=== PATIENT | female | born 1985 | race Caucasian/White ===

== ENCOUNTER 2019-10-08 10:55 | Day surgery (SDC) | payer BC, SELFPAY ==
--- NOTE | 2019-10-07 14:21 | PCM.HP.BLA ---
History and Physical Date of Admission: 10/08/19 Pre-Op History and Physical ? HPI: The patient is a 34 year old female presenting for pre-operative visit. She is scheduled for?Suction D&C, for?missed ab 10 weeks from LMP, 8 week size on?10/08/19. ??Procedure discussed along with risks, benefits and complications. ?Other alternatives discussed for management. Consent form signed??Yes.? PAST MEDICAL HISTORY PAST MEDICAL HISTORY Diagnosis Date ? Asthma ? ? exercise-induced, no inhaler since high school ? Complication of anesthesia ? ? sensitive to Epidural ? Depression 2001 ? IBS (irritable bowel syndrome) 2008 ? ? PAST SURGICAL HISTORY PAST SURGICAL HISTORY Procedure Laterality Date ? COLONOSCOPY ? 2008 ? D&C, DIAG AND/OR THERAPEUTIC ? 06/2014 ? Dilation & curettage ? PAST SURGICAL HISTORY OF ? ? ? wisdom teeth ? UNSPECIFIED ORAL SURGERY PROCEDURE, BY REPORT ? CURRENT MEDICATIONS Current Outpatient Medications Medication Sig Dispense Refill ? PNV no.95/ferrous fum/folic ac ( ORAL) Take by mouth. ? ? ? docosahexanoic acid (DHA ALGAL-900 ORAL) Take by mouth. ? ? ? docusate sodium (STOOL SOFTENER ORAL) Take by mouth. ? ? ? multivitamin with folic acid (THERA) 400 mcg Take 1 tablet by mouth. ? ? ? buPROPion XL (WELLBUTRIN XL) 150 mg ORAL 24 hr tablet Take 150 mg by mouth once daily. ? ? ? No current facility-administered medications for this visit.? ? ALLERGIES:?Penicillins; Gluten ? PERSONAL HISTORY:? SOCIAL HISTORY Social History ? Tobacco Use ? Smoking status: Never Smoker ? Smokeless tobacco: Never Used Substance Use Topics ? Alcohol use: Not Currently ? ? Comment: Occasionally, not while ? Drug use: No ? FAMILY HISTORY:? FAMILY HISTORY FAMILY HISTORY Problem Relation Age of Onset ? Thyroid Mother ?hypo ? Heart Mother ?failed stress test ? Allergies Father ?multiple ? Heart Father ? ? Aneurysm Father ?heart ? Skin Cancer Father ?face ? Thyroid Maternal Grandmother ?hypo ? Cancer Maternal Grandmother ? ? other (depression) Maternal Grandmother ?and anxiety ? Heart Maternal Grandfather ? ? other (depression) Paternal Grandmother ?and anxiety ? Heart Paternal Grandfather ?triple bypass ? REVIEW OF SYMPTOMS: GENERAL: denies fevers or chills ENDOCRINOLOGY: has not been on steroids Cardiology : denies palpitations or chest pain Respiratory: denies SOB or cough Hematology: denies history of prolonged bleeding or easy bruising or VTE Allergy: Denies history of personal or family history of allergy to anesthesia ? ? PHYSICAL EXAMINATION: ? VITALS:?Last menstrual period 07/23/2019. ? GENERAL:??The patient is well nourished, well hydrated in no acute distress. ?, The patient is oriented to time, place, and person. NECK:?Supple. No lynphadenopathy, normal thyroid, no thyromegaly. LUNGS:?Clear to auscultation bilaterally. no wheezes, rhonchi or rales HEART:?Regular rate and rhythm, Normal heart sounds and No murmurs or gallops GENITALIA:?Normal external genitalia, Urethral meatus normal, Bladder nontender, normal vagina and normal vaginal tone, normal cervix, normal uterus, size and consistency, normal adnexa without masses or tenderness and perineum WNL ? ? Brief TVUS done, single IUP without cardiac activity, c/w 8 week size embryo.? ? IMPRESSION:?10w6d?missed ab ? PLAN:???The risks/benefits/alternatives and personal involved for the planned?suction D&C?were reviewed with the patient. Her questions were answered to her satisfaction and she desires to proceed. ?Consent was signed. ?I reviewed with her postop instructions and expectations. ?Offered genetic screening, declines.? ? ? I have reviewed and updated past medical and surgical history, medications and allergies. this history and physical was completed in my office on 10/07/2019.
[2019-10-08] VITALS (7 sets, daily range): BP systolic 93–113; BP diastolic 50–70; PULSE 84–112; RESP 16; TEMP 36.6–37.6; O2SAT 98; BMI 30.7
[2019-10-08 11:28] LABS: Hematocrit 37.9 % (37-47); Hemoglobin 12.5 g/dL (12.0-15.0); Mean Corpuscular Hgb 28.6 pg (27.0-32.0); Mean Corpuscular Volume 86.7 fL (81-99); Mean Platelet Vol. 8.7 fl (6.2-12.0); Platelet Count 328 K/mm3 (150-450); RBC Distribution Width CV 12.6 % (11.6-14.6); RBC Distribution Width SD 40.2 fl (35.1-43.9); Red Blood Count 4.37 M/mm3 (4.2-5.4); White Blood Count 6.2 K/mm3 (4.4-11.0)
[2019-10-08] MEDS: Lactated Ringers 1,000 ML 100 ML IV (11:57)
[2019-10-08] MEDS: Acetaminophen 500 MG Tablet 1000 MG PO (11:58)
[2019-10-08] MEDS: Doxycycline 100 MG CAPSULE PO (11:58)
[2019-10-08] MEDS: Ketorolac 30 MG/ML Syringe IV (11:58)
--- NOTE | 2019-10-08 12:30 | POC_PTH ---
PATIENT: LAURA BROOKS LOC: [facility] [place] U#:[id number] AGE/SX: 34/F ROOM: RE10/08/[address]: Dr. Kayleen Ashton MD : 1985 BED: DIS: 10/08/2019 SPEC #: [id number] RECD: 10/08/19 15:51 STATUS: JOSH REMaritza #: [id number] MAXWELL: 10/08/19 12:[address]: Kayleen Ashton DEPT: SURGICAL PATHOLOGY RECD BY: Lavern Tatum ENTERED: 10/08/19 15:52 SP TYPE: PROD CONC OTHR DR: NOMI Vega Tissues: Product of conception, NOS Procedures: Surgery Specimen Level IV HEADER OPERATION: D & C suction PRE-OP DIAGNOSIS: 10 week missed AB TISSUE SUBMITTED: Products of conception MICROSCOPIC DIAGNOSIS Endometrium, curettage: Chorionic villi, decidualized stroma and trophoblastic cells consistent with products of conception. AM:aggie 10/09/19 MICROSCOPIC DESCRIPTION Slides are reviewed. GROSS DESCRIPTION Received in fixative is one container labeled with the patient's name and designated products of conception. The specimen consists of multiple irregular and hemorrhagic fragments of reddish-alexandre soft tissue that in aggregate measure 9 x 8 x 1 cm. parts are not grossly identified. Equipment Driver portions are submitted in one cassette. / AM:aggie 10/08/19 TC:5 CPT: 22390
--- NOTE | 2019-10-08 12:51 | DCINST_ITS ---
Discharge Diet: No Restrictions Discharge Activity: Return to Normal Activity, May Shower, May Take a Tub Bath - in 1 weeks. May resume sexual activity in: 1 week Call your doctor if your incision/area has: Sudden Increased Bleeding Call your doctor if you observe: Fever of 101 or Higher, Inability to urinate, Inability to have a bowel movement, Using more than one pad per hour - for 2 hrs in a row Allergies/Adverse Reactions: Allergies amoxicillin [Amoxicillin] Allergy (Verified 10/08/19 11:30) Rash as a child Penicillins Allergy (Verified 10/08/19 11:30) Rash as a child Medications to take at Discharge Doxycycline 100 mg PO BID 1 Days #2 cap 10/08/19 The following prescriptions were given: Doxycycline 100 mg PO BID 1 Days #2 cap Transmission Status: Pending to [facility] Primary Care Physician: Es Deal PA [Primary Care Provider] - Test Results: Test results from this visit will be discussed in further detail at your follow- up appointment, if applicable. Please Follow Up With: Kayleen Ashton MD - [phone] When: 2-4 weeks or as needed
[2019-10-08] MEDS: Lubricating Jelly 60 GM Tube 30 GM TOPICAL (12:54)
--- NOTE | 2019-10-08 13:03 | OP.PCM_ITS ---
Report of Operation Date of Procedure: 10/08/19 Pre-Operative Diagnosis: 10 week missed spontaneous Post-Operative Diagnosis: same Surgery/Procedure Performed:: Suction dilation and curettage Description of Surgical Findings:: Normal-appearing cervix and vagina industrial ecologist: None Type of Anesthesia:: MAC/Supplemental/Local Anesthesiologist: Fredrick Holt Special Medications: none Specimen's removed: POCs Drains: none Estimated Blood Loss (mL): 20 Fluids Replaced: 400 Description of Procedure: The patient was taken to the operating room where she was prepped and draped in a dorsolithotomy position. A bimanual examination was done and confirmed the uterus to be 8 weeks size and anteverted. A weighted speculum was placed in the vagina and the anterior lip of the cervix was grasped with a single-tooth tenaculum. The cervix was dilated serially. A 9 mm suction curette was placed to the uterine fundus and the suction was created. Several passes were made to remove clots and products of conception. When minimal tissue was returning a gentle sharp curettage was then done of the uterine cavity. The uterine cry was appreciated and another gentle pass was made with the suction curette. At this point there is no active bleeding from the uterus and minimal blood and no further products of conception were removed. The instruments removed from the cervix and the cervix was observed and no a ctive bleeding was identified. The tenaculum was removed off the cervix and hemostasis of the tenaculum site was assured. Made of the instruments removed from the vagina and the vaginal sweep was completed by me. Sponge and needle counts were correct. The patient was taken to the recovery room in stable condition. Findings: 9 week size uterus, normal cervix and vagina. Specimen: Products of conception Grafts/Implants Used: none - Complications none - Admit VTE Documentation VTE Present on Admission: No VTE Mechan Device Prophylaxis: SCD's VTE Pharm Prophylaxis ordered?: No Reason prophylaxis not ordered:: Procedure Not Indicated
== END 2019-10-08 14:56 | disposition home or self-care (01) ==
LOC: SDC 10:57 → AC 10:58
PROVIDERS: PCP Physician Assistant Medical; Referring Provider Obstetrics & Gynecology; Visit Provider Obstetrics & Gynecology
PROC: (CPT 59820; principal; 2019-10-08 12:15)
DX: O02.1 Missed abortion (principal); J45.909 Unspecified asthma, uncomplicated; F32.9 Major depressive disorder, single episode, unspecified; Z79.899 Other long term (current) drug therapy
CPT/HCPCS: 01965; 59820; 36415; 85027; 86850; 86900; 86901; 88305; J7120; J2405

== ENCOUNTER 2022-04-29 07:50 | Inpatient (IN) | payer BC, SELFPAY ==
[2022-04-29] VITALS (54 sets, daily range): BP systolic 92–148; BP diastolic 51–75; PULSE 77–104; TEMP 36.5–37.4; O2SAT 96–100; BMI 37.8
[2022-04-29] MEDS: Lactated Ringers 1,000 ML 200 ML IV ×2 (08:10→13:27)
[2022-04-29] MEDS: LACTATED RINGERS 500 ML 999 ML IV ×2 (08:10→13:27)
[2022-04-29 08:20] LABS: Absolute Lymphocyte Count 1.26 X10^3/uL (0.83-4.51); Absolute Neutrophil Count 9.9 X10^3/uL (2.0-7.7); Basophil# 0.02 X10^3/uL; Basophil% 0.2 % (0-1); Eosinophil# 0.09 X10^3/uL; Eosinophils% 0.8 % (0-5); Hematocrit 39.6 % (37-47); Lymphocyte # 1.26 X10^3/ul (0.83-4.51); Lymphocyte % 10.6 % (19-41); Mean Corp Hgb Conc 32.8 g/dL (32-36); Mean Corpuscular Volume 85.3 fL (81-99); Mean Platelet Vol. 9.5 fl (6.2-12.0); Monocyte% 4.2 % (0-10); NRBC Flagged by Analyzer 0 % (0-5); Neutrophil # 9.86 X10^3/uL (2.7-7.7); Neutrophil % 82.7 % (47-70); Platelet Count 267 K/mm3 (150-450); RBC Distribution Width CV 14.1 % (11.6-14.6); RBC Distribution Width SD 43.7 fl (35.1-43.9); Red Blood Count 4.64 M/mm3 (4.2-5.4); White Blood Count 11.9 K/mm3 (4.4-11.0)
[2022-04-29] MEDS: Cefazolin 2 GM in 0.9% Normal Saline 100 ML IV (09:04)
[2022-04-29] MEDS: fentaNYL-bupivacaine (epidural) 100 ML BAG EPIDURAL (13:27)
--- NOTE | 2022-04-29 13:28 | PCM.DC.SUM ---
Providers Date of Admission: 04/29/22 Primary Care Physician: NOMI Vega Reason For Visit: VAGINAL DELIVERY Medications at Discharge Home Medications DHA 04/29/22 04/29/22 bupropion HCl 150 mg 24 hr tablet, extended release mg PO depression 04/29/22 docusate calcium 04/29/22 acetaminophen 500 mg tablet 1,000 mg PO Q6H PRN PRN Pain 1-10 Or Fever #0 tabs 04/30/22 ibuprofen 600 mg tablet 600 mg PO Q6H PRN PRN Pain Score 1-3 #0 tabs 04/30/22 Hospital Course Summary of Care Provided Hospital Course: Vaginal delivery Physical Exam Const alert, oriented x3 and no apparent distress HEENT normocephalic GI soft to palpation, non-tender and non-distended GI Narrative: fundus firm, mid & below umbilicus Extremity normal to inspection and no calf tenderness Weight / BMI Weight Weight: 213 lb 6.519 oz Body Mass Index (BMI) 37.8 ABG / Lab / Microbiology Data Result Diagrams: 04/29/22 08:05 Laboratory: Laboratory Results - last 24 hr 04/29/22 08:05: WBC 11.9 H, RBC 4.64, Hgb 13.0, Hct 39.6, MCV 85.3, MCH 28.0, MCHC 32.8, RDW Std Deviation 43.7, RDW Coeff of Alondra 14.1, Plt Count 267, MPV 9.5, Immature Gran % (Auto) 1.500 H, Neut % (Auto) 82.7 H, Lymph % (Auto) 10.6 L, Glascock % (Auto) 4.2, Eos % (Auto) 0.8, Baso % (Auto) 0.2, Absolute Neuts (auto) 9.9 H, Absolute Lymphs (auto) 1.26, Nucleated RBC % 0 04/29/22 08:05: Blood Type B POSITIVE, Antibody Screen NEGATIVE Microbiology: Microbiology 04/29/22 08:05 Nasal Secretion SARS-CoV-2 Antigen (Rapid) - Final D/C Instructions Discharge Diet: No restrictions Discharge Activity: May Shower May resume sexual activity in: 6 weeks Call your doctor if you observe: Fever of 101 or Higher, Change in Color, Inability to urinate, Using more than 1 pad per hour, Shortness of breath, Dizziness, Fainting spells, Chest pain, Prolonged hiccupping and Uncontrolled pain Please Follow Up With: Marco Antonio Lemos MD When: 2 & 6 week visits Meaningful Use Info Meaningful Use Diagnoses (Choose all that apply): None applicable Discharge Plan Admission Admit Date/Time: 04/29/22 07:50 Primary Reason for Your Visit: Vaginal delivery Attending Provider: Marco Antonio Lemos Primary Care Provider: Es Deal Discharge Orders/Prescriptions Prescriptions: New acetaminophen 500 mg Tablet 1,000 mg PO Q6H PRN PRN (Reason: Pain 1-10 Or Fever) Qty: 0 0RF ibuprofen 600 mg Tablet 600 mg PO Q6H PRN PRN (Reason: Pain Score 1-3) Qty: 0 0RF Continued bupropion HCl 150 mg tablet extended release 24 hr PO DHA docusate calcium Referrals / Follow Up: Es Deal, PA [Primary Care Provider] - Disposition Disposition (needs filled in before D/C Order can be placed): Home, Self Care
--- NOTE | 2022-04-29 13:29 | PCM.HP.OB ---
HPI - General General Date of Admission: 04/29/22 Date of Service: 04/29/22 HPI Narrative LAURA BROOKS, is a 36 F who presents with contractions. Maternal Data Information Final LIZZIE: [birth year] Gestational age: 39&4 PFSH PFSH Medical History Depression Family history of hearing loss at age younger than 7 years depression Home Medications DHA 04/29/22 [History Last Taken Unknown] 04/29/22 [History Last Taken Unknown] bupropion HCl 150 mg 24 hr tablet, extended release mg PO depression 04/29/22 [History Last Taken Unknown] docusate calcium 04/29/22 [History Last Taken Unknown] Allergy/AdvReac Type Severity Reaction Status Date / Time amoxicillin [Amoxicillin] Allergy Rash Verified 04/29/22 08:21 Penicillins Allergy Rash Verified 04/29/22 08:21 Surgical History (Updated 04/29/22 @ 08:26 by Velvet Pickard) History of surgery Social History Smoking Status: Never smoker History Elective abortions Hx Para 2 Spontaneous abortions Hx # Term Pregnancies Ectopic pregnancies Hx # Pregnancies Multiple births # of living children NST FHR Rate Baby A Baseline: 145 Variability:: Moderate Accelerations:: 15 x 15 Decelerations:: Variable Uterine Activity:: Q 5 minutes Vital Signs Vital Signs Vital Signs: 04/29/22 08:45 04/29/22 08:45 04/29/22 08:44 Temperature Temperature Source Pulse Rate 93 Blood Pressure 128/74 H BP Systolic 128 BP Diastolic 74 Pulse Ox 99 04/29/22 08:49 04/29/22 08:49 04/29/22 08:49 Temperature Temperature Source Pulse Rate 103 H Blood Pressure 132/75 H BP Systolic 132 BP Diastolic 75 Pulse Ox 98 04/29/22 08:54 04/29/22 08:54 04/29/22 08:54 Temperature Temperature Source Pulse Rate 93 Blood Pressure 127/71 H BP Systolic 127 BP Diastolic 71 Pulse Ox 96 04/29/22 08:59 04/29/22 08:59 04/29/22 08:59 Temperature Temperature Source Pulse Rate 93 Blood Pressure 111/67 BP Systolic 111 BP Diastolic 67 Pulse Ox 99 04/29/22 09:04 04/29/22 09:04 04/29/22 09:04 Temperature 98.1 F Temperature Source Pulse Rate 95 Blood Pressure BP Systolic BP Diastolic Pulse Ox 98 04/29/22 09:06 04/29/22 09:06 04/29/22 09:09 Temperature Temperature Source Pulse Rate 97 97 Blood Pressure 118/69 BP Systolic 118 BP Diastolic 69 Pulse Ox 04/29/22 09:09 04/29/22 09:11 04/29/22 09:11 Temperature Temperature Source Pulse Rate 96 Blood Pressure 117/64 BP Systolic 117 BP Diastolic 64 Pulse Ox 98 04/29/22 09:14 04/29/22 09:14 04/29/22 09:14 Temperature Temperature Source Pulse Rate 104 H Blood Pressure 109/59 L BP Systolic 109 BP Diastolic 59 Pulse Ox 97 04/29/22 09:19 04/29/22 09:19 04/29/22 09:19 Temperature Temperature Source Pulse Rate 97 Blood Pressure 115/66 BP Systolic 115 BP Diastolic 66 Pulse Ox 100 04/29/22 09:24 04/29/22 09:24 04/29/22 09:24 Temperature Temperature Source Pulse Rate 101 H Blood Pressure 106/58 L BP Systolic 106 BP Diastolic 58 Pulse Ox 98 04/29/22 09:29 04/29/22 09:29 04/29/22 09:29 Temperature Temperature Source Pulse Rate 93 88 Blood Pressure 114/63 BP Systolic 114 BP Diastolic 63 Pulse Ox 04/29/22 09:29 04/29/22 09:35 04/29/22 09:35 Temperature Temperature Source Pulse Rate 93 Blood Pressure 104/61 BP Systolic 104 BP Diastolic 61 Pulse Ox 99 04/29/22 10:05 04/29/22 10:05 04/29/22 11:31 Temperature Temperature Source Pulse Rate 91 Blood Pressure 108/57 L 103/52 L BP Systolic 108 103 BP Diastolic 57 52 Pulse Ox 04/29/22 11:31 04/29/22 11:31 04/29/22 13:11 Temperature 97.7 F L Temperature Source Pulse Rate 100 Blood Pressure 92/53 L BP Systolic 92 BP Diastolic 53 Pulse Ox 04/29/22 13:11 04/29/22 13:16 04/29/22 13:16 Temperature Temperature Source Temporal Pulse Rate 90 92 Blood Pressure BP Systolic BP Diastolic Pulse Ox 04/29/22 13:16 04/29/22 13:16 Temperature 98.6 F Temperature Source Pulse Rate Blood Pressure BP Systolic BP Diastolic Pulse Ox 99 Weight Weight: 213 lb 6.519 oz Body Mass Index (BMI) 37.8 Physical Exam Const alert, oriented x3 and no apparent distress Chest inspection of chest normal GI soft to palpation, non-tender and non-distended Inspection: gravid external exam normal Narrative: cvx - 7/80/-1, AROM clear fluid Labs Labs Labs: Blood Type B POSITIVE Antibody Screen NEGATIVE Hct 39.6 % (37-47) Hgb 13.0 g/dL (12.0-15.0) Rhogam given: No See [facility] H&P Assessment & Plan (1) 39 weeks gestation of : COMMENT: @ 39&4 PLAN: Admit to L&D Expectant management COVID negative GBS positive - ancef d/t pcn allergy EFW - less than 4500g Pain - epidural Routine care
[2022-04-29] MEDS: Cefazolin 1 GM/50 ML BAG IV (14:21)
[2022-04-29] MEDS: Oxytocin 30 units/NS 500 ml 30 UNITS/500 ML IV.SOLN 334 UNITS IV (17:34)
--- NOTE | 2022-04-29 17:53 | EX.PCM.OBRPT ---
Maternal Data Information Final LIZZIE: 05[birth year] Gestational age: 39&4 Vaginal Delivery Operative Information Date of Procedure: 04/29/22 Pre-Operative Diagnosis: Labor Post-Operative Diagnosis: Labor Surgery / Procedure Performed: Spontaneous Vaginal Delivery Type of Anesthesia: Epidural Estimated Blood Loss: 300ml Findings Description of Procedure: Patient prepped & draped when C/C/+2. She pushed well and the ritgen maneuver was gently performed to aid in delivery of the head due to bradycardia. head gently guided to allow delivery of anterior and posterior shoulders. No excess traction placed on head. Body delivered and 3VC clamped & cut in delayed fashion. Placenta delivered with gentle traction and good uterine tone obtained. Presentation: MIRANDA Amniotic Membrane Rupture Type: Artificial Amniotic Fluid Description: Clear Placental Delivery Description: Expressed Placenta Disposition: [facility] Specimen(s) Removed: Placenta Cord Vessel Description: 3 Vessels Cord Entanglement: None A Gender: Female (Khloe) (1 minute): 8 (5 minute): 9 Delayed Cord Clamping: Yes Post Vaginal Delivery Medications Given After Delivery: IV Pitocin Episiotomy Description: None Laceration: 1st degree (perineal - repaired with 3-0 vicryl) Complication Complications: None
[2022-04-29] MEDS: Ibuprofen 600 MG Tablet PO (20:07)
[2022-04-29] MEDS: 0.9% Saline Lock 10 ML Syringe IV (21:01)
--- NOTE | 2022-04-29 23:32 | NURSING ---
Pt's kelly cath discontinued @ delivery. Pt called RN to room at 2130 d/t feeling the need to void. Pt's bladder very distended and uterus shifted to the right. Pt attempted to void on toilet, but was unable to despite running water, using jamie bottle, and smelling salt broken in hat underneath pt. Pt in significant pain d/t full bladder, so assisted pt back to bed for straight cath. Pt straight cathed by ENDER Devine and ENDER Braga @ 2144. 1600 cc's of urine emptied via straight cath. Pt reports feeling much better, stomach soft and non-distended, uterus @u, midline, and firm after straight cath. Pt resting in bed now, will attempt to void every few hours. ENDER Cardona
[2022-04-30 00:25] VITALS: BP 123/61; PULSE 84; RESP 18; TEMP 36.6; O2SAT 98
[2022-04-30] MEDS: buPROPion (XL) 150 MG TABLET.XL PO ×2 (00:25→22:45)
[2022-04-30] MEDS: Acetaminophen 500 MG Tablet 1000 MG PO ×2 (01:55→17:51)
[2022-04-30] MEDS: Senna/Docusate Sodium 1 Tablet PO (02:00)
[2022-04-30 06:00] VITALS: BP 109/55; PULSE 82; RESP 16; TEMP 36.6; O2SAT 96
[2022-04-30] MEDS: Ibuprofen 600 MG Tablet PO ×3 (06:33→19:16)
[2022-04-30 08:48] VITALS: BP 115/67; PULSE 93; RESP 16; TEMP 36.7; O2SAT 97
[2022-04-30 11:26] VITALS: BP 123/76; PULSE 85; RESP 18; TEMP 36.6; O2SAT 97
--- NOTE | 2022-04-30 11:52 | PCM.PN.OB ---
Subjective Subjective Denies complaints Objective Data Objective Data Vital Signs: Vital Signs Temp Pulse Resp BP Pulse Ox O2 Del Method 97.8 F 85 18 123/76 H 97 Room Air 04/30/22 11:26 04/30/22 11:26 04/30/22 11:26 04/30/22 11:26 04/30/22 11:04/30/22 11:26 Oxygen Delivery Method Room Air Weight: 213 lb 6.519 oz Body Mass Index (BMI) 37.8 Intake & Output: Intake and Output for Last 24 Hours 04/28/22 04/29/22 04/30/22 23:59 23:59 23:59 Intake Total 4276.67 / 4276.67 Output Total 2250 / 2250 1400 / 1400 Balance 2026.67 / 2026.67 -1400 / -1400 Lab / Micro Data Result Diagrams: 04/29/22 08:05 Micro: Microbiology 04/29/22 08:05 Nasal Secretion SARS-CoV-2 Antigen (Rapid) - Final Physical Exam Const alert, oriented x3 and no apparent distress HEENT normocephalic GI soft to palpation, non-tender and non-distended GI Narrative: fundus firm, mid & below umbilicus Extremity normal to inspection and no calf tenderness Assessment & Plan (1) (spontaneous vaginal delivery): COMMENT: PPD#1 PLAN: Routine care D/c home later today per patient request
[2022-04-30 16:07] VITALS: BP 113/77; PULSE 95; RESP 18; TEMP 36.6; O2SAT 95
[2022-04-30 22:46] VITALS: BP 109/64; PULSE 79; RESP 18; TEMP 36.4; O2SAT 98
[2022-05-01 01:40] VITALS: BP 113/72; PULSE 80; RESP 18; TEMP 36.1; O2SAT 100
[2022-05-01] MEDS: Senna/Docusate Sodium 1 Tablet PO (01:44)
[2022-05-01] MEDS: Ibuprofen 600 MG Tablet PO (01:48)
[2022-05-01 08:05] VITALS: BP 128/74; PULSE 86; RESP 16; TEMP 36.4
--- NOTE | 2022-05-01 10:17 | PCM.PN.OB ---
Subjective Subjective pain well controlled, average lochia. Objective Data Objective Data Vital Signs: Vital Signs Temp Pulse Resp BP Pulse Ox O2 Del Method 97.5 F L 86 16 128/74 H 100 Room Air 05/01/22 08:05 05/01/22 08:05 05/01/22 08:05 05/01/22 08:05 05/01/22 01:40 05/01/22 08:05 Oxygen Delivery Method Room Air Weight: 96.8 kg Body Mass Index (BMI) 37.8 Intake & Output: Intake and Output for Last 24 Hours 04/29/22 04/30/22 05/01/22 23:59 23:59 23:59 Intake Total 4276.67 / 4276.67 Output Total 2250 / 2250 1400 / 1400 Balance 2026.67 / 2026.67 -1400 / -1400 Lab / Micro Data Result Diagrams: 04/29/22 08:05 Micro: Microbiology 04/29/22 08:05 Nasal Secretion SARS-CoV-2 Antigen (Rapid) - Final Physical Exam Const alert and no apparent distress Narrative: Fundus firm, below umbilicus. Assessment & Plan (1) (spontaneous vaginal delivery): COMMENT: PPD#1 PLAN: Patient is doing well. Desires discharge home. is breast-feeding and doing well and ready for discharge.
== END 2022-05-01 12:00 | disposition home or self-care (01) | DRG 807 ==
PROVIDERS: Admitting Provider Obstetrics & Gynecology; PCP Physician Assistant Medical; Visit Provider Obstetrics & Gynecology
DX: O99.824 Streptococcus B carrier state complicating childbirth (principal); Z37.0 Single live birth; O99.344 Other mental disorders complicating childbirth; F32.A Depression, unspecified; O70.0 First degree perineal laceration during delivery; O76 Abnormality in fetal heart rate and rhythm complicating labor and delivery; Z20.822 Contact with and (suspected) exposure to COVID-19; Z79.899 Other long term (current) drug therapy; Z3A.39 39 weeks gestation of pregnancy
CPT/HCPCS: 59025; 59050; 85025; 86850; 86900; 86901; 87811; 99218; J7120; A4216; G0378